=== PATIENT | male | born 1985 | race Caucasian/White ===

== ENCOUNTER 2018-02-01 14:46 | Emergency (ER) | payer OTHER, SELFPAY ==
[2018-02-01 14:53] VITALS: BP 121/81; PULSE 94; RESP 15; TEMP 36.7; O2SAT 97; BMI 23.7
[2018-02-01 15:25] LABS: Add Manual Diff / Slide Review NO; Basophils Percent Auto 0.3 % (0-2); Eosinophils Percent Auto 0.9 % (2-4); Hematocrit 45.7 % (41-53); Hemoglobin 16.1 g/dL (13.5-17.5); Lymphocytes Percent Auto 17.6 % (25-40); Mean Corpuscular HGB Conc 35.2 % (30-36); Mean Corpuscular Hemoglobin 32.7 PG (26-34); Mean Corpuscular Volume 92.9 fL (80-100); Monocytes Percent Auto 7.9 % (3-14); Neutrophils Absolute Auto 6700 /uL (3000-5900); Neutrophils Percent Auto 73.3 % (50-75); Platelet Count 300 X10^3/uL (150-400); Red Blood Cell Count 4.91 X10^6/uL (4.5-5.9); Red Cell Distribution Width 12.6 % (11.6-14.8); White Blood Cell Count 9.1 X10^3/uL (4.5-11.0)
[2018-02-01 15:39] VITALS: BP 113/85; PULSE 80; RESP 21; O2SAT 97
--- NOTE | 2018-02-01 15:46 | PC.NURSE ---
Will continue to monitor, per MD Montague, if it gets worse may need epi. Patient reports I feel like it's getting better.
[2018-02-01 15:47] LABS: BUN Creatinine Ratio 17.1 (6-22); Calcium 9.8 mg/dL (8.4-10.2); Estimated Glomerular Filt Rate > 60.0 mL/min (>60); Glucose 96 mg/dL (70-100); HEMOLYSIS 25 (0-50); Potassium 4.4 mmol/L (3.4-5.1); Sodium 140 mmol/L (137-145)
[2018-02-01 16:05] VITALS: BP 108/77; PULSE 74; RESP 16; O2SAT 97
[2018-02-01 17:05] VITALS: BP 110/79; PULSE 77; RESP 16; O2SAT 97
[2018-02-01 17:38] VITALS: BP 111/79; PULSE 63; RESP 12; O2SAT 97
[2018-02-01 18:17] VITALS: BP 102/73; PULSE 66; RESP 12; O2SAT 97
--- NOTE | 2018-02-01 18:31 | ED.ALLEREA ---
HPI - Allergic Reaction General Chief complaint: Allergic Reaction Stated complaint: Face and eyes swelling/SOB Time Seen by Provider: 02/01/18 15:15 History of Present Illness HPI narrative: HPI 32-year-old male with a history of apparent exercise-induced anaphylaxis presents for evaluation of mild throat swelling/congestion (resolving) and bilateral periorbital edema of 2 hours duration that occurred while the patient was on a run. Patient reports prior allergy testing notable for a reaction to elier. Denies rash, GI upset, wheezing, shortness of breath. Patient took prednisone, Pepcid, and diphenhydramine prior to presentation. M/S/F/SocHx notable for: please see HPI; remainder reviewed with patient and in chart. ROS: Negative constitutional, eye, cardiovascular, pulmonary, GI, , MSK, skin, neurologic, psychiatric, endocrine unless noted in the HPI. Exam Gen: Pleasant, non-toxic appearing, resting in mild discomfort. HEENT: moderate bilateral puffy periorbital edema, mild facial swelling. Oropharynx visually normal. Patient able to speak comfortably. Intermittently coughing/clearing his throat. NC, AT, PEERL, EOMI. Resp: Clear to auscultation bilaterally, normal work of breathing, no accessory muscle usage. Card: Regular rate and rhythm with no murmurs, rubs, or gallops, extremities warm and well perfused. GI: nontender to palpation throughout all quadrants, no rebound, no guarding. : No suprapubic tenderness to palpation. MSK: No visible deformities, strength and tone without visually appreciable deficit. Skin: Normal color with no visible lesions. Neuro: AO x 3, no facial asymmetry, vision and hearing WNL. Psych: Mood and affect appropriate. Labs / Imaging: WBC 9.1, hemoglobin 16.1, sodium 140, potassium 4.4 MDM Previous chart, nursing note, labs, imaging, and vitals reviewed. A: 32-year-old male with a history of apparent exercise-induced anaphylaxis presents with 2 hours of puffy periorbital facial swelling, mild sensation of throat congestion, notes improving symptoms in the course of taking prednisone, diphenhydramine, and Pepsi prior to arrival; exam without further signs of anaphylaxis. DDx: exercise-induced angioedema, exercise-induced anaphylaxis, anaphylaxis secondary to an occult antigen, infection. Evaluation: patient with improving symptoms with conservative management, overall suspect exercise-induced anaphylaxis, however given the atypical history and lack of a definitive diagnosis C1 esterase inhibitor and C4 component levels ordered. Patient discharged with EpiPen prescription. Patient to follow up with PCP. Impression: suspected exercise-induced anaphylaxis. (please reference below for remainder of encounter information) Related Data Home Medications Medication Instructions Recorded Confirmed cetirizine [Zyrtec] 10 mg PO DAILY 02/01/18 02/01/18 diphenhydramine HCl [Benadryl] 50 mg PO PRN PRN 02/01/18 02/01/18 famotidine [Pepcid] 20 mg PO PRN PRN 02/01/18 02/01/18 prednisone 20 mg PO PRN PRN 02/01/18 02/01/18 Allergies Allergy/AdvReac Type Severity Reaction Status Date / Time oxycodone Allergy Intermediate Hives Verified 02/01/18 14:56 [facility] Social History Smoking Status: Never smoker MDM - Allergic Reaction Lab Data Result diagrams: 02/01/18 15:15 02/01/18 15:15 Lab Results 02/01/18 02/01/18 Range/Units 15:15 15:15 WBC 9.1 (4.5-11.0) X10^3/uL RBC 4.91 (4.5-5.9) X10^6/uL Hgb 16.1 (13.5-17.5) g/dL Hct 45.7 (41-53) % MCV 92.9 (80-100) fL MCH 32.7 (26-34) PG MCHC 35.2 (30-36) % RDW 12.6 (11.6-14.8) % Plt Count 300 (150-400) X10^3/uL Neut % (Auto) 73.3 (50-75) % Lymph % (Auto) 17.6 L (25-40) % [place] % (Auto) 7.9 (3-14) % Eos % (Auto) 0.9 L (2-4) % Baso % (Auto) 0.3 (0-2) % Neut # (Auto) 6700 H (7718-9680) /uL Sodium 140 (137-145) mmol/L Potassium 4.4 (3.4-5.1) mmol/L Chloride 102.0 (98-107) mmol/L Carbon Dioxide 26.0 (22-32) mmol/L BUN 12.0 (9-20) mg/dL Creatinine 0.70 (0.66-1.25) mg/dL Estimated GFR > 60.0 (>60) mL/min BUN/Creatinine Ratio 17.1 (6-22) Glucose 96 (70-100) mg/dL Calcium 9.8 (8.4-10.2) mg/dL Discharge Plan Departure Prescriptions: No Action cetirizine [Zyrtec] 10 mg Tablet 10 mg PO DAILY RF: 0 prednisone 20 mg Tablet 20 mg PO PRN PRN (Reason: Allergic Reaction) RF: 0 famotidine [Pepcid] 20 mg Tablet 20 mg PO PRN PRN (Reason: Allergic Reaction) RF: 0 diphenhydramine HCl [Benadryl] 25 mg Capsule 50 mg PO PRN PRN (Reason: Allergic Reaction) RF: 0
[2018-02-03 13:50] LABS: C1 Esterase Inhibitor 29 mg/dL (21-39)
== END 2018-02-01 19:34 | disposition home or self-care (01) ==
PROVIDERS: Emergency Provider Emergency Medicine
DX: T78.2XXA Anaphylactic shock, unspecified, initial encounter (principal); R09.81 Nasal congestion; R60.0 Localized edema; Y93.02 Activity, running
CPT/HCPCS: 36415; 36591; 80048; 85025; 86160; 99283

== ENCOUNTER → 2018-04-17 12:48 | Outpatient (CLI) | payer OTHER, SELFPAY ==
[2018-04-20 06:59] LABS: Immunoglobulin E 87 kU/L (< 115)
== END ==
PROVIDERS: Visit Provider Allergy & Immunology
DX: T78.2XXA Anaphylactic shock, unspecified, initial encounter (principal)
CPT/HCPCS: 36415; 82785; 83520; 86003

== ENCOUNTER → 2018-07-11 14:00 | Outpatient (CLI) | payer OTHER, SELFPAY | DX: Z23 Encounter for immunization (principal) | CPT/HCPCS: 90471; 90686 ==

== ENCOUNTER → 2019-07-15 11:09 | Outpatient (CLI) | payer OTHER, SELFPAY | DX: Z23 Encounter for immunization (principal) | CPT/HCPCS: 90471; 90686 ==

== ENCOUNTER 2019-08-21 12:46 | Emergency (ER) | payer OTHER, SELFPAY ==
[2019-08-21 12:46] VITALS: BP 143/96; PULSE 80; RESP 28; TEMP 36.7; O2SAT 95
[2019-08-21] MEDS: EPINEPHrine 1 MG/ML AMPUL 0.3 MG IM (12:48)
--- NOTE | 2019-08-21 12:51 | ED.ALLEREA ---
HPI - Allergic Reaction General Chief complaint: Allergic Reaction Stated complaint: ALLERGIC REACTION Time Seen by Provider: 08/21/19 12:49 Source: patient Mode of arrival: Ambulatory Limitations: no limitations History of Present Illness HPI narrative: Patient is a 33-year-old male with history of exercise-induced anaphylaxis presenting with increased difficulty breathing and allergic reaction. He usually pre medicates with Zyrtec and usually helps however today he was running and started feeling of swelling in his throat. He typically carries an EpiPen with him however he did have 1 on him, it was in the car. MD complaint: allergic reaction, hives and facial swelling Onset (ago): minute(s) Symptoms: difficulty breathing Severity: moderate Treatment prior to arrival: none Related Data Home Medications Medication Instructions Recorded Confirmed cetirizine [Zyrtec] 10 mg PO DAILY 02/01/18 08/21/19 diphenhydramine HCl [Benadryl] 50 mg PO PRN PRN 02/01/18 08/21/19 famotidine [Pepcid] 20 mg PO PRN PRN 02/01/18 08/21/19 Previous Rx's Medication Instructions Recorded epinephrine [EpiPen 2-Shlomo] 0.3 mg IM Q10M PRN #2 each 02/01/18 prednisone 40 mg PO DAILY #10 tab 08/21/19 Allergies Allergy/AdvReac Type Severity Reaction Status Date / Time ibuprofen Allergy Intermediate ITCHING Verified 08/21/19 13:08 oxycodone Allergy Intermediate Hives Verified 02/01/18 14:56 Review of Systems Review of Systems ROS Unobtainable: All systems reviewed & are unremarkable except as noted in HPI and below Constitutional Constitutional: Denies chills, Denies fever(s), Denies lethargy and Denies weakness Eyes Eyes: Denies change in vision, Denies eye discharge, Denies irritation and Denies loss of vision ENT Ears, Nose, Mouth, and Throat: Reports as per HPI Cardiovascular Cardiovascular: Denies chest pain, Denies irregular heart rhythm, Denies lightheadedness, Denies palpitations, Denies dyspnea and Denies orthopnea Respiratory Respiratory: Denies dyspnea and Denies stridor Musculoskeletal Musculoskeletal: Denies back pain, Denies muscle weakness, Denies numbness and Denies tingling Integumentary/Breasts Skin/Breast: Denies pruritus, Denies erythema, Denies rash and Denies wounds Neurologic Neurologic: Denies loss of vision, Denies numbness, Denies tingling and Denies weakness Endocrine Endocrine: Denies palpitations Patient History Medical History Anaphylaxis (Acute) Social History Smoking Status: Never smoker alcohol intake frequency: a few times a week Substance Use Type: does not use Exam Initial Vital Signs Initial Vital Signs: Vital Signs Temperature 98.1 F 08/21/19 12:46 Pulse Rate 80 08/21/19 12:46 Respiratory Rate 28 H 08/21/19 12:46 Blood Pressure 143/96 H 08/21/19 12:46 Pulse Oximetry 95 08/21/19 12:46 GENERAL: Alert young male [id number] distress HEENT: Head atraumatic,EOMI, pupils reactive, right eye with conjunctivae, no obvious swelling, coughing slight hoarseness CARDIOVASCULAR: Regular rate and rhythm without murmurs, rubs or gallops. RESPIRATORY: Breath sounds equal bilaterally, no wheezes rales or rhonchi. Speaking in full sentences ABDOMEN: Soft, nontender. Normoactive bowel sounds all 4 quadrants. No guarding or rebound. EXTREMITIES: Normal range of motion, no clubbing or edema. Neurovascularly intact NEUROLOGICAL: Alert and oriented x4.Normal gait and speech. SKIN: The hives all over body on face Course Orders Ordered: Discontinued Medications Albuterol (Ventolin) 2.5 mg INH NOW ONE Stop: 08/21/19 12:50 Last Admin: 08/21/19 12:56 Dose: 2.5 mg Documented by: ROGER Diphenhydramine HCl (Benadryl) 25 mg IV NOW ONE Stop: 08/21/19 12:50 Last Admin: 08/21/19 12:58 Dose: 25 mg Documented by: ROGER Epinephrine HCl (Adrenalin) 0.3 mg IM NOW ONE Stop: 08/21/19 12:50 Last Admin: 08/21/19 12:48 Dose: 0.3 mg Documented by: ROGER Famotidine (Pepcid) 20 mg in 50 mls @ 200 mls/hr IV NOW ONE Stop: 08/21/19 13:03 Last Infusion: 08/21/19 13:19 Dose: 0 mls/hr Documented by: Admin: 08/21/19 12:58 Dose: 200 mls/hr Documented by: ROGER Sodium Chloride (Normal Saline 0.9%) 1,000 mls @ 1,000 mls/hr IV BOLUS ONE Stop: 08/21/19 13:48 Last Infusion: 08/21/19 14:00 Dose: 0 mls/hr Documented by: Admin: 08/21/19 12:56 Dose: 1,000 mls/hr Documented by: ROGER Methylprednisolone (Solu-Medrol 125 Mg Vial) 125 mg IV NOW ONE Stop: 08/21/19 12:50 Last Admin: 08/21/19 12:58 Dose: 125 mg Documented by: ROGER Vital Signs Vital signs: Vital Signs - 8 hr 08/21/19 12:46 08/21/19 13:00 08/21/19 13:15 Temperature 98.1 F Pulse Rate 80 84 74 Respiratory Rate 28 H 16 12 Blood Pressure 143/96 H Blood Pressure [Right Arm] 126/74 133/60 Pulse Oximetry 95 99 100 08/21/19 13:30 08/21/19 14:05 Temperature Pulse Rate 73 74 Respiratory Rate 12 14 Blood Pressure Blood Pressure [Right Arm] 133/68 127/67 Pulse Oximetry 100 100 MDM - Allergic Reaction MDM Narrative Medical decision making narrative: The patient initially improved significantly with 1st dose of epi. He started feeling some swelling in the back with throat return. He had just been given Solu-Medrol and Benadryl we decided to wait and monitor him. The feeling went away he did not require 2nd dose of epinephrine. He overall is feeling much better. He looks much improved as well. Discussed with him the importance of caring an EpiPen with him at all times especially while running. Discharge Plan Departure Patient Disposition: Home Clinical Impression: Anaphylaxis Qualifiers: Encounter type: initial encounter Qualified Code(s): T78.2XXA - Anaphylactic shock, unspecified, initial encounter Discharge Date/Time: 08/21/19 14:28 Instructions: DI for Anaphylaxis Activity Restrictions/Additional Instructions: Have better excuse for getting out of work next time, maybe you should rethink your life choices of long running, just sayin ) *You have been diagnosed with anaphylaxis *What to do: CARRY AN EPIPEN WITH YOU WHILE RUNNING AT ALL TIMES, it does not help if EpiPen is in the car *Continue to take medications as directed Prednisone 40 mg once a day for 5 days *Follow up with your primary care provider in 2-3 days *Return to ER if you should have throat swelling difficulty breathing shortness of breath or any new, worsening or concerning symptoms Prescriptions: New prednisone 20 mg tablet 40 mg PO DAILY Qty: 10 RF: 0 No Action cetirizine [Zyrtec] 10 mg Tablet 10 mg PO DAILY RF: 0 famotidine [Pepcid] 20 mg Tablet 20 mg PO PRN PRN (Reason: Allergic Reaction) RF: 0 diphenhydramine HCl [Benadryl] 25 mg Capsule 50 mg PO PRN PRN (Reason: Allergic Reaction) RF: 0 epinephrine [EpiPen 2-Shlomo] 0.3 mg/0.3 mL auto-injector 0.3 mg IM Q10M PRN (Reason: anaphylaxis) Qty: 2 RF: 0 Referrals: [facility] [Outside]
[2019-08-21] MEDS: ALBUTEROL 2.5 MG/3 ML NEB (ADULT) INH (12:56)
[2019-08-21] MEDS: SODIUM CHLORIDE 0.9% 1,000 ML 1000 ML IV (12:56)
[2019-08-21] MEDS: methylPREDNISolone 125 MG/2 ML VIAL IV (12:58)
[2019-08-21] MEDS: FAMOTIDINE 20 MG/50 ML PIGGYBACK 200 MG IV (12:58)
[2019-08-21] MEDS: diphenhydrAMINE 50 MG/ML VIAL 25 MG IV (12:58)
[2019-08-21 13:00] VITALS: BP 126/74; PULSE 84; PULSE 90; RESP 16; O2SAT 98; O2SAT 99
[2019-08-21 13:15] VITALS: BP 133/60; PULSE 74; RESP 12; O2SAT 100
[2019-08-21 13:30] VITALS: BP 133/68; PULSE 73; RESP 12; O2SAT 100
[2019-08-21 14:05] VITALS: BP 127/67; PULSE 74; RESP 14; O2SAT 100
== END 2019-08-21 14:28 | disposition home or self-care (01) ==
PROVIDERS: Emergency Provider Emergency Medicine
DX: T78.2XXA Anaphylactic shock, unspecified, initial encounter (principal)
CPT/HCPCS: 94640; 96361; 96365; 96372; 96375; 99284; J0171; J1200; J2930; J7613

== ENCOUNTER → 2020-07-09 02:37 | Outpatient (CLI) | payer OTHER, SELFPAY | PROVIDERS: Referring Provider Internal Medicine; Visit Provider Internal Medicine | DX: Z23 Encounter for immunization (principal) | CPT/HCPCS: 90471; 90686 ==

== ENCOUNTER → 2021-07-07 | Outpatient (CLI) | payer OTHER, SELFPAY | PROVIDERS: Referring Provider Internal Medicine; Visit Provider Internal Medicine | DX: Z23 Encounter for immunization (principal) | CPT/HCPCS: 90471; 90686 ==

== ENCOUNTER → 2022-07-26 11:42 | Outpatient (CLI) | payer OTHER, SELFPAY | PROVIDERS: Referring Provider Internal Medicine; Visit Provider Internal Medicine | DX: Z23 Encounter for immunization (principal) | CPT/HCPCS: 90471; 90686 ==

== ENCOUNTER → 2023-07-13 11:23 | Outpatient (CLI) | payer OTHER, SELFPAY | PROVIDERS: Referring Provider Family Medicine; Visit Provider Family Medicine | DX: Z23 Encounter for immunization (principal) | CPT/HCPCS: 90471; 90686 ==

== ENCOUNTER → 2024-07-10 14:16 | Outpatient (CLI) | payer OTHER, SELFPAY | PROVIDERS: Referring Provider Internal Medicine; Visit Provider Internal Medicine | DX: Z23 Encounter for immunization (principal) | CPT/HCPCS: 90471; 90656 ==